=== PATIENT | male | born 1965 ===

== ENCOUNTER 2018-06-17 22:04 | Emergency (ER) | payer BC, MEDICAID ==
[2018-06-17 22:21] VITALS: RESP 20; O2SAT 99
[2018-06-17] MEDS ORDERED: Sodium Chloride 0.9% 1,000 ML IV ONE (23:41)
--- NOTE | 2018-06-17 23:49 | C.PDOC ---
History Of Present Illness 52 year old male c/o fever, chills, body aches, upper abdominal pain, 1 episode of vomit and headache that started today at 18:30. Patient states today he was diagnosed with elevated triglycerides and given a medication at his PMD's office. Patient reports after being given Tylenol at ED he is feeling better but still having some abdominal pain. Patient denies diarrhea, rash, dysuria, hematuria, CP, SOB, palpitations, headache, recent travel, sick contacts. Chief Complaint (Nursing): Fever History Per: Patient History/Exam Limitations: no limitations Onset/Duration Of Symptoms: Hrs Current Symptoms Are (Timing): Better Associated Symptoms: Fever, Chills, Vomiting Ear Symptoms: Bilateral: None Recent travel outside of the [place]: No Additional History Per: Patient Past Medical History Reviewed: Historical Data, Nursing Documentation, Vital Signs Vital Signs: Last Vital Signs Temp 102.9 F H 06/17/18 22:11 Pulse 111 H 06/17/18 22:11 Resp 20 06/17/18 22:11 BP 143/78 06/17/18 22:11 Pulse Ox 99 06/17/18 22:11 - Medical History PMH: Hyperlipidemia (high triglycerides) Surgical History: No Surg Hx Family History: States: Unknown Family Hx - Social History Hx Alcohol Use: No Hx Substance Use: No Review Of Systems Constitutional: Positive for: Fever, Chills ENT: Negative for: Nose Discharge, Nose Congestion Cardiovascular: Negative for: Chest Pain, Palpitations Respiratory: Negative for: Cough, Shortness of Breath Gastrointestinal: Positive for: Vomiting, Abdominal Pain Genitourinary: Negative for: Dysuria, Hematuria Musculoskeletal: Negative for: Back Pain Skin: Negative for: Rash Neurological: Negative for: Headache, Dizziness Physical Exam - Physical Exam Appears: Non-toxic, No Acute Distress Skin: Normal Color, Warm, Dry Head: Atraumatic, Normacephalic Eye(s): bilateral: Normal Inspection, PERRL, EOMI Oral Mucosa: Moist Neck: Normal ROM, Supple Chest: Symmetrical Cardiovascular: Rhythm Regular Respiratory: Normal Breath Sounds, No Rales, No Rhonchi, No Wheezing Gastrointestinal/Abdominal: Soft, Tenderness (mild RUQ), No Guarding, No Rebound Extremity: Normal ROM, No Tenderness, No Swelling Neurological/Psych: Oriented x3, Normal Speech, Normal Cognition Gait: Steady ED Course And Treatment - Laboratory Results Result Diagrams: 06/17/18 23:51 06/17/18 23:51 O2 Sat by Pulse Oximetry: 99 (ON RA) Pulse Ox Interpretation: Normal Medical Decision Making Medical Decision Making: Plan: * Labs * Motrin 800 mg PO * IV fluids * Rapid Flu * UA 01:20 - Patient reports feeling better after IV fluids, discussed results with patient. Patient's temperature was down to 98.8. Patient was advised to follow up with PMD. Disposition Counseled Patient/Family Regarding: Studies Performed, Diagnosis, Need For Followup - Disposition Referrals: Blade Patel MD [Medical Doctor] - Disposition: HOME/ ROUTINE Disposition Time: 01:22 Condition: GOOD Instructions: Viral Syndrome (DC) Forms: [facility] (Georgian), General Discharge Instructions - POA Present On Arrival: None - Clinical Impression Clinical Impression: Influenza-like illness - Scribe Statement The provider has reviewed the documentation as recorded by the Scribe Kevyn Cuenca All medical record entries made by the Scribe were at my direction and personally dictated by me. I have reviewed the chart and agree that the record accurately reflects my personal performance of the history, physical exam, medical decision making, and the department course for this patient. I have also personally directed, reviewed, and agree with the discharge instructions and disposition.
[2018-06-17 23:53] LABS: BASO % 0.2 % (0.0-2.0); EOS % 0.1 % (0.0-4.0); HEMOGLOBIN 13.6 g/dL (12.0-18.0); LYMPH # 0.6 K/uL (1.0-4.3); MEAN CORPUSCULAR HEMOGLOBIN 30.3 pg (27.0-31.0); MEAN PLATELET VOLUME 8.6 fL (7.2-11.7); MONO # 0.2 K/uL (0.0-0.8); MONO % 2.4 % (0.0-10.0); NEUT # 5.6 K/uL (1.8-7.0); NEUT % 88.3 % (50.0-75.0); NRBC % 0.1 % (0.0-2.0); PLATELET COUNT 201 K/uL (130-400); RED CELL DISTRIBUTION WIDTH 13.2 % (11.5-14.5); WHITE BLOOD COUNT 6.4 K/uL (4.8-10.8)
[2018-06-17] MEDS ORDERED: Sodium Chloride 0.9% 1,000 ML ONE (23:53)
[2018-06-18 00:06] LABS: ALB/GLOB RATIO 1.3 (1.0-2.1); ALBUMIN 4.3 g/dL (3.5-5.0); ALT/SGPT 33 U/L (21-72); AST/SGOT 49 U/L (17-59); BLOOD UREA NITROGEN 23 mg/dL (9-20); CALCIUM 8.9 mg/dl (8.6-10.4); GFR NON-AFRICAN AMERICAN > 60; LIPASE 58 U/L (23-300)
[2018-06-18 00:11] LABS: URINE BILIRUBIN NEGATIVE (NEGATIVE); URINE BLOOD NEGATIVE (NEGATIVE); URINE CLARITY Clear (Clear); URINE COLOR Yellow (YELLOW); URINE GLUCOSE (UA) NORMAL (Normal); URINE LEUKOCYTE ESTERASE NEG Leu/uL (Negative); URINE PROTEIN NEGATIVE (NEGATIVE); URINE UROBILINOGEN NORMAL mg/dL (0.2-1.0)
[2018-06-18 00:37] LABS: BANDS 5 % (0-2); LYMPHOCYTE 9 % (20-40); MONOCYTE 4 % (0-10); NEUTROPHIL 82 % (50-75); TOTAL CELLS COUNTED 100
[2018-06-18 00:38] LABS: PLATELET ESTIMATE NORMAL (NORMAL)
[2018-06-18 01:17] VITALS: BP 131/70; PULSE 81; TEMP 98.8
== END 2018-06-18 01:35 | disposition home or self-care (01) ==
LOC: C.ER 22:04
DX: J11.1 Influenza due to unidentified influenza virus with other respiratory manifestations (principal)
CPT/HCPCS: 80053; 81001; 83690; 85025; 87804; 96360; 99284; J7030